=== PATIENT | female | born 1995 | race Caucasian/White ===

== ENCOUNTER 2017-04-20 07:22 | Emergency (ER) | payer BC ==
[~2017-04-20] VITALS: Ht 162.6 cm; Wt 65.0 kg
[2017-04-20 08:29] LABS: APPEARANCE SL.HAZY ((CLEAR)); BILIRUBIN NEGATIVE; BLOOD NEGATIVE; COLOR YELLOW ((YELLOW)); GLUCOSE (STRIP) NEGATIVE; KETONES 80; LEUKOCYTES NEGATIVE; NITRITE NEGATIVE; PROTEIN (STRIP) 30; SPECIFIC GRAVITY 1.023 (1.000-1.030)
[2017-04-20 08:38] LABS: HEMATOCRIT 43.1 % (36.0-46.0); HEMOGLOBIN 14.8 G/DL (11.9-15.5); MCH 30.2 PG (29.0-34.0); MCHC 34.3 G/DL (30.0-36.0); PLATELET COUNT 145 K/uL (156-360); RBC DIS.WIDTH-CV 11.9 % (11.8-14.6); RBC DIS.WIDTH-SD 38.2 % (39-53); WHITE BLOOD COUNT 2.3 K/uL (4.1-10.2)
[2017-04-20 08:49] LABS: ALBUMIN 4.2 g/dL (3.2-4.8); CHLORIDE 102 mEq/L (99-109); POTASSIUM 3.7 mEq/L (3.7-5.4); SODIUM 140 mEq/L (136-147)
[2017-04-20 08:52] LABS: GLUCOSE 89 mg/dL (70-99); TOTAL PROTEIN 7.4 g/dL (6.4-8.3)
[2017-04-20 08:54] LABS: TOTAL BILIRUBIN 0.4 mg/dL (0.0-1.0)
[2017-04-20 08:55] LABS: ALKALINE PHOSPHATASE 66 IU/L (3-129); CREATININE 0.8 mg/dL (0.6-1.3); GFR ESTIMATE (CALCULATED) > 59 mL/min/
[2017-04-20 08:56] LABS: UREA NITROGEN (BUN) 6 mg/dL (9-23)
[2017-04-20 08:57] LABS: AST (GOT) 34 IU/L (2-34)
[2017-04-20 09:01] LABS: ALT (GPT) 28 IU/L (3-49)
[2017-04-20 09:04] LABS: BACTERIA NONE SEEN /HPF; EPITHELIAL CELLS 1+ /HPF; MUCUS TRACE /LPF; RED BLOOD CELLS 0-5 /HPF (0-5)
[2017-04-20 09:04] LABS: QUANTITATIVE HCG < 4.0 MIU/ML
[2017-04-20 09:54] LABS: MONOSPOT (MONONUCLEOSIS SEROL) NEGATIVE
[2017-04-20] MEDS ORDERED: TESSALON PERLE100 MG PO (10:10)
[2017-04-20] MEDS ORDERED: ZOFRAN ODT4 MG PO (10:10)
[2017-04-20 10:23] VITALS: BP 100/57
== END 2017-04-20 10:30 | disposition home or self-care (01) ==
LOC: EME 07:22
PROVIDERS: Nurse Practitioner Family
DX: B34.9 Viral infection, unspecified (principal); E86.0 Dehydration
CPT/HCPCS: 71046; 80053; 81003; 84702; 85027; 86308; 99281; 99284